=== PATIENT | female | born 1985 ===

== ENCOUNTER 2024-10-01 05:20 | Day surgery (SDC) | payer OTHER ==
[2024-09-24 08:06] VITALS: BP 124/81
[2024-09-24 08:17] LABS: URINE APPEARANCE Cloudy; URINE BILIRRUBIN Negative (NEGATIVE); URINE BLOOD Negative; URINE COLOR Yellow; URINE GLUCOSE Negative (NEGATIVE); URINE KETONE Negative (NEGATIVE); URINE LEUKOCYTE Negative; URINE NITRATE Negative; URINE PROTEIN Negative (NEGATIVE); URINE UROBILINOGEN 0.2 E.U./dl
[2024-09-24 08:20] LABS: BASO % 0.7 % (0.1-1.2); EOS # 0.22 (0.04-0.54); EOS % 2.5 % (0.7-7.0); LYMPH # 3.08 (1.18-3.74); LYMPH % 35.6 % (19.3-53.1); MEAN PLATELET VOLUME 10.40 fl (9.4-12.4); MONO # 0.66 (0.24-0.82); MONO % 7.6 % (4.7-12.5); NEUT # 4.62 (1.56-6.13); NEUT % 53.4 % (34.0-71.1); RED CELL DISTRIBUTION WIDTH 13.6 % (11.6-14.4)
[2024-09-24 08:21] LABS: URINE BACTERIA 1223.8 uL (0.0-1933); URINE EPITHELIAL CELLS 129.9 uL (0.0-38.8); URINE RBC 3.5 uL (0.0-20.8); URINE WBC 23.2 uL (0.0-23.2)
[2024-09-24 08:26] LABS: URINE CAST 0.43 uL (0.0-1.40)
[2024-09-24 09:27] LABS: INR 0.96
[2024-09-24 09:36] LABS: ALT/SGPT 14.0 U/L (12-78); AST/SGOT 14.0 U/L (15-37); BILIRUBIN TOTAL 0.37 mg/dL (0.3-1.2); BUN CREA RATIO 19.0 (7.0-25.0); CREATININE SERUM 0.89 mg/dL (0.55-1.02); GFR 71.37; GLOBULINA 3.8 G/DL (2.4-3.5); GLUCOSE FASTING 102.0 mg/dL (65-100); OSMOLALITY SERUM 283.0 MOSM/KG (275-295)
[~2024-10-01] VITALS: Ht 175.3 cm; Wt 86.2 kg
[~2024-10-01 05:20] MED LIST: ABILIFY2 MG PO
[2024-10-01] MEDS ORDERED: POVIDONE-IODINE 118 ML BOTT TOP ONE (07:22)
[2024-10-01] MEDS ORDERED: CHLORHEXIDINE GLUCONATE 120 ML BOTTLE TOP ONE (08:58)
[2024-10-01] MEDS ORDERED: MORPHINE SULFATE 4 MG/ML VIAL IV PRN (09:45)
[2024-10-01] MEDS ORDERED: PROMETHAZINE HCL 50 MG/ML AMPUL IM ONE (09:45)
== END 2024-10-01 14:00 | disposition home or self-care (01) ==
LOC: CIR.AMB 05:20
PROVIDERS: ATTEND Obstetrics & Gynecology
DX: N84.0 Polyp of corpus uteri (principal); N93.8 Other specified abnormal uterine and vaginal bleeding